=== PATIENT | male | born 1940 | race Caucasian/White ===

== ENCOUNTER 2017-09-25 09:42 | Emergency (ER) | payer MEDICARE, OTHER ==
[~2017-09-25] VITALS: Ht 167.6 cm; Wt 10.4 kg
[2017-09-25] MEDS ORDERED: ELIQUIS5 MG PO (09:58)
[2017-09-25 10:20] VITALS: BP 144/78
== END 2017-09-25 10:20 | disposition home or self-care (01) ==
LOC: ED 09:42
DX: I86.8 Varicose veins of other specified sites (principal)

== ENCOUNTER 2018-07-12 11:00 | Outpatient (RCR) | payer MEDICARE, OTHER ==
[~2018-07-12 11:00] MED LIST: ELIQUIS5 MG PO
== END 2018-07-12 12:00 | disposition home or self-care (01) ==
LOC: PT 11:00
PROVIDERS: ATTEND Orthopaedic Surgery Adult Reconstructive Orthopaedic Surgery
DX: M70.71 Other bursitis of hip, right hip (principal); M25.551 Pain in right hip

== ENCOUNTER 2019-04-01 23:59 | Emergency (ER) | payer MEDICARE, OTHER ==
[~2019-04-01] VITALS: Ht 167.6 cm; Wt 104.0 kg
[2019-04-02 00:26] LABS: HEMATOCRIT 48.7 % (39.0-50.0); IMMATURE GRANULOCYTES 1.2 % (0.0-5.0); MEAN CELL VOLUME 99.2 fL CALC (80.0-100.0); MEAN CORPUSCULAR HGB 32.6 pG CALC (26.0-32.0); MEAN CORPUSCULAR HGB CONC 32.9 g/L CALC (32.0-36.0); NEUT# 5.34 thou/uL (1.82-7.42); RED BLOOD COUNT 4.91 mill/uL (4.70-6.10); RED CELL DISTRI WIDTH 14.2 % (11.5-15.5)
[2019-04-02 00:39] LABS: GFR > 60 ML/MIN (>=60 (CALC)); GFR FOR AFR.AMER. > 60 ML/MIN (>=60 (CALC))
[2019-04-02 00:46] LABS: ALBUMIN 4.1 g/dL (3.2-5.0); ALKALINE PHOSPHATASE 81 u/l (38-126); ANION GAP 18 (6-22 (CALC)); BILIRUBIN, TOTAL 0.8 mg/dL (0.0-1.4); BUN 12 mg/dL (8-23); BUN/CREATININE RATIO 17 (12-20 (CALC)); CARBON DIOXIDE 20 mmol/l (22-30); CHLORIDE 106 mmol/l (95-108); CREATININE 0.7 mg/dL (0.7-1.3); GFR > 60 ML/MIN (>=60 (CALC)); GFR FOR AFR.AMER. > 60 ML/MIN (>=60 (CALC)); POTASSIUM 4.3 mmol/l (3.5-5.1); SGOT/AST 45 u/l (19-48); SODIUM 139 mmol/l (137-146); TOTAL PROTEIN 8.1 g/dL (6.3-8.2)
[2019-04-02 00:54] LABS: ACT PARTIAL THROMBO TIME 29.3 SECONDS (20.0-32.5); INTERNATIONAL NORMALIZED RATIO 1.1 RATIO (0.7-1.3); PROTHROMBIN TIME 11.2 SECONDS (9.0-12.5)
[2019-04-02 00:57] LABS: MYOGLOBIN 56 ng/mL (0 - 121)
[2019-04-02 01:44] LABS: URINE BILIRUBIN - DIPSTICK NEGATIVE (NEGATIVE); URINE BLOOD DIPSTICK NEGATIVE (NEGATIVE); URINE COLOR YELLOW; URINE GLUCOSE - DIPSTICK NEGATIVE (NEGATIVE); URINE KETONE NEGATIVE (NEGATIVE); URINE LEUK ESTERASE NEGATIVE (NEGATIVE); URINE NITRITE - DIPSTICK NEGATIVE (Negative); URINE PROTEIN - DIPSTICK NEGATIVE (NEG-TRACE); URINE SPECIFIC GRAVITY <=1.005; URINE UROBILINOGEN - DIPSTICK 0.2 E.U./dL (0.2)
[2019-04-02 02:45] VITALS: BP 144/79
== END 2019-04-02 02:45 | disposition short-term general hospital (02) ==
LOC: ED 23:59
PROVIDERS: Emergency Medicine
DX: G45.9 Transient cerebral ischemic attack, unspecified (principal); I48.91 Unspecified atrial fibrillation; Z79.01 Long term (current) use of anticoagulants

== ENCOUNTER 2021-07-02 06:48 | Emergency (ER) | payer MEDICARE, OTHER ==
[~2021-07-02] VITALS: Ht 167.6 cm; Wt 103.0 kg
[2021-07-02 07:36] LABS: GFR > 60 ML/MIN (>=60 (CALC)); GFR FOR AFR.AMER. > 60 ML/MIN (>=60 (CALC))
[2021-07-02 07:44] LABS: IMMATURE GRANULOCYTES 0.6 % (0.0-5.0); MEAN CELL VOLUME 100.3 fL CALC (80.0-100.0); MEAN CORPUSCULAR HGB 32.1 pG CALC (26.0-32.0); NEUT# 6.12 thou/uL (1.82-7.42); RED BLOOD COUNT 3.15 mill/uL (4.70-6.10); RED CELL DISTRI WIDTH 15.5 % (11.5-15.5)
[2021-07-02 07:45] LABS: HEMATOCRIT 31.6 % (39.0-50.0); HEMOGLOBIN 10.1 g/dl (14.0-18.0)
[2021-07-02 07:57] LABS: ALKALINE PHOSPHATASE 67 u/l (38-126); ANION GAP 8 (6-22 (CALC)); BILIRUBIN, TOTAL 0.7 mg/dL (0.0-1.4); BUN 11 mg/dL (8-23); BUN/CREATININE RATIO 15 (12-20 (CALC)); CARBON DIOXIDE 24 mmol/l (22-30); CHLORIDE 107 mmol/l (95-108); CREATININE 0.7 mg/dL (0.7-1.3); GFR > 60 ML/MIN (>=60 (CALC)); GFR FOR AFR.AMER. > 60 ML/MIN (>=60 (CALC)); POTASSIUM 3.8 mmol/l (3.5-5.1); SGOT/AST 31 u/l (19-48); SODIUM 136 mmol/l (137-146)
[2021-07-02 08:01] LABS: ALBUMIN 2.8 g/dL (3.2-5.0)
[2021-07-02 08:29] LABS: INTERNATIONAL NORMALIZED RATIO 1.1 RATIO (0.7-1.3); PROTHROMBIN TIME 11.3 SECONDS (9.0-12.5)
[2021-07-02 09:00] VITALS: BP 126/64
[2021-07-02 09:15] VITALS: BP 126/65
[2021-07-02 09:30] VITALS: BP 121/62
[2021-07-02 09:45] VITALS: BP 115/68
[2021-07-02] MEDS ORDERED: DICLOFENAC SODIUM1 % TOP (09:45)
[2021-07-02] MEDS ORDERED: LIPITOR40 M1 PO (09:45)
[2021-07-02] MEDS ORDERED: CLOPIDOGREL75 MG PO (09:46)
[2021-07-02] MEDS ORDERED: VITAMIN D32000 UNI2 PO (09:47)
[2021-07-02] MEDS ORDERED: SILDENAFIL20 MG PO (09:47)
[2021-07-02 10:00] VITALS: BP 136/69
[2021-07-02 10:50] VITALS: BP 136/69
== END 2021-07-02 10:50 ==
LOC: ED 06:48
PROVIDERS: Family Medicine
DX: K92.1 Melena (principal); D64.9 Anemia, unspecified; I48.91 Unspecified atrial fibrillation; Z95.5 Presence of coronary angioplasty implant and graft; Z79.01 Long term (current) use of anticoagulants; Z20.822 Contact with and (suspected) exposure to COVID-19
CPT/HCPCS: Q9967; S0164